=== PATIENT | male | born 1970 | race Caucasian/White ===

== ENCOUNTER 2017-07-20 04:40 | Emergency (ER) | payer OTHER ==
[~2017-07-20] VITALS: Ht 175.3 cm; Wt 78.4 kg
[~2017-07-20 04:40] MED LIST: HYDR2.5L TOP; VNTHFA/IN INH
[2017-07-20 04:41] VITALS: TEMP 36.5; Ht 175.3 cm; Wt 78.4 kg
[2017-07-20] MEDS ORDERED: DIPHTHERIA/TETANUS/PERTUSSIS 0.5 ML SYR/VIAL IM. ONE (05:00)
[2017-07-20] MEDS ORDERED: XYLOCAINE 1%/SOD BICARB 20 ML VIAL INFIL ONE (05:00)
[2017-07-20] MEDS ORDERED: IPRA1AER2 INH (05:12)
[2017-07-20] MEDS ORDERED: AMOXICIL/CLAVU 875MG HOME PACK PO ONE (06:30)
[2017-07-20] MEDS ORDERED: AMOX875T PO (06:31)
[2017-07-20 06:40] VITALS: BP 122/83; PULSE 76; O2SAT 97
--- NOTE | 2017-07-21 00:57 | EMERGENCY ROOM VISIT NOTE ---
History First contact with patient: 04:48 Chief Complaint: LACERATION/CUT (SUT/DERMABOND) Stated Complaint: LACERATION TO LIP Nursing Triage Summary: Pt's was sitting with his dog and jumped off the chair and her back paws hit his face. History of Present Illness The patient is a 46 year old male who presents to the Emergency Room with complaints of laceration to his right lower lip. The patient states that he came home from work, and sat in a chair. His dog jumped onto his lap, as his normal, and subsequently jumped down off of the patient. When this occurred one of the animals back paws struck him in the face, causing the laceration. The patient is with obvious laceration to the right lip. Bleeding is well- controlled. He is unsure of his tetanus. He does not report other injury and rates his discomfort a 4/10. Review of Systems More than 6 systems were reviewed and otherwise negative with the exception of history of present illness. Past Medical/Surgical History Medical Problems: (1) Asthma Family History No pertinent family history Social History Smoking Status: Current Every Day Smoker Alcohol Use: heavy Occupation Status: employed Current/Historical Medications Scheduled Amoxicillin & Pot Clavulanate (Augmentin 875-125 mg), 1 TAB PO BID Ipratropium-Albuterol (Combivent Respimat), 1 PUFFS INH BID Physical Exam Vital Signs Date Time Temp Pulse Resp B/P (MAP) Pulse Ox O2 Delivery O2 Flow Rate FiO2 07/20/17 06:40 76 20 122/83 97 07/20/17 06:37 76 20 122/83 97 Room Air 07/20/17 04:41 36.5 59 20 122/80 100 Room Air Physical Exam VITALS: Vitals are noted on the nurse's note and reviewed by myself. Vital signs stable. GENERAL: Well-developed, well-nourished, white male who appears comfortable and cooperative. MOUTH: Mucous membranes moist. Tonsils are not enlarged. Pharynx without erythema, blood, or exudate. Uvula midline. Airway patent. Dentition in good repair. There is a 4.5 cm Y-shaped laceration along the right lower lip to the right side cheek. This gapes and will require repair. This does cross the vermilion border laterally NECK: Supple without nuchal rigidity. No lymphadenopathy. No thyromegaly. Cervical spine is nontender. HEART: Regular rate and rhythm without murmurs gallops or rubs. LUNGS: Clear to auscultation bilaterally without wheezes, rales or rhonchi. No retractions or accessory muscle use. Medical Decision & Procedures Medications Administered Medications (Trade) Dose Ordered Sig/Ling Route Start Time Stop Time Status Last Admin Dose Admin Diphtheria/ Pertussis/Tetanus Vacc (Adacel Inj) 0.5 ml ONCE ONCE IM. 07/20/17 05:00 07/20/17 05:01 DC 07/20/17 05:05 0.5 ML Amoxicillin/ Clavulanate Potassium (Augmentin 875MG Home Pack) 1 homepack UD ONCE PO 07/20/17 06:30 07/20/17 06:34 DC 07/20/17 06:37 1 HOMEPACK Procedure Laceration repair. Patient elects to have their laceration repaired. Verbal consent was obtained to perform the procedure. There is an abundance of materials available for the procedure. Patient is not allergic to latex. Using sterile technique the wound was cleaned with Betadine. The area was sterilely draped. 4 ml of 1% buffered lidocaine was used to anesthetize the right lip laceration. Once the patient was anesthetized, the wound was copiously irrigated under pressure with sterile saline. The wound was explored and there were no deep structures injured such as tendons, bone, or significant blood vessels. The laceration was repaired using 11 simple interrupted 6-0 nylon sutures and 4 simple interrupted 6-0 Vicryl sutures with the wound edges being well approximated. Hemostasis was achieved. The area was cleaned with sterile saline and dressed with bacitracin ointment and bandage. The patient was given a tetanus booster. Patient tolerated the procedure well without complications. Blood loss was negligible. ED Course Physical exam and history were performed. Nursing notes, EMR, and Medication List were personally reviewed. Patient appears to have a laceration to his right lower lip from the paw of his dog. The wound is quite gaping and of cosmetic concern. We do not have plastics available tonight for consult. I discussed options of care with the patient and we elected to undergo repair here at the facility. The wound was meticulously cleansed and repaired as above. The patient will be placed on antibiotics. His tetanus was updated. He will be given information to follow with plastics for further management. He was otherwise invited back to the ER with any new, worsening, or concerning symptoms. The chart was completed utilizing [employer] Speech Voice Recognition Software. Grammatical errors, random word insertions, pronoun errors, and incomplete sentences are an occasional consequence of this system due to software limitations, ambient noise, and hardware issues. Any formal questions or concerns about the content, text, or information contained within the body of this dictation should be directly addressed to the provider for clarification. . Medical Decision Differential diagnosis includes, but is not limited to: Laceration, abrasion, foreign body, dental/facial injury, and others Impression Primary Impression: Laceration of lip Departure Information Dispostion Home / Self-Care Condition GOOD Prescriptions Amoxicillin & Pot Clavulanate (Augmentin 875-125 mg) 1 Tab Tab 1 TAB PO BID for 5 Days, #10 TAB Prov: Scott Irving PA-C 07/20/17 Referrals Carolyn Goldman MD Forms HOME CARE DOCUMENTATION FORM, IMPORTANT VISIT INFORMATION Patient Instructions My [facility] Additional Instructions You were seen and evaluated today on an emergency basis only. This is not a substitute for, or an effort to provide, complete comprehensive medical care. It is not possible to recognize and treat all injuries or illnesses in a single emergency department visit. Keep wound clean and dry. Do not allow any crusting or dried blood to accumulate on sutures. If this occurs, use a mild soap/water on a Q-tip to clean the wound. Do not use Peroxide to clean the wound as this can delay healing Use an antibiotic ointment like Bacitracin for 3-4 days, then let wound dry. You may bathe and shower as normal, but DO NOT SOAK the wound. Suture removal in about 5-7 days with your Family Doctor or in the ER. Return sooner for any signs of infection, increasing redness, swelling, or drainage. You may wish to follow with plastic surgery, Dr. Goldman's office, for cosmetic evaluation after suture removal Amoxicillin Clavulanate (Augmentin) 875mg: Take one pill twice daily for 5 days to prevent infection. All antibiotics can cause diarrhea. If this occurs and you feel worse or it does not resolve in 1-2 days follow up with your doctor or return to the Emergency Department as this could be signs of serious underlying problems. Any medication can cause an allergic reaction, stop the pills immediately and return to the ER for rash, hives, breathing difficulties, or swelling. You are welcome to return to the emergency department anytime with new, worsening, or concerning symptoms.
== END 2017-07-20 06:41 | disposition home or self-care (01) ==
LOC: C.EDB 04:41 → C.EDA 06:41
DX: S01.511A Laceration without foreign body of lip, initial encounter (principal); W54.1XXA Struck by dog, initial encounter; J45.909 Unspecified asthma, uncomplicated; F17.200 Nicotine dependence, unspecified, uncomplicated; Z23 Encounter for immunization